=== PATIENT | female | born 1950 | race Hispanic/Latino ===

== ENCOUNTER → 2019-09-29 | Outpatient (CLI) | payer OTHER | END | disposition home or self-care (01) | LOC: RAH 13:48 | PROVIDERS: ATTEND Family Medicine | DX: Z12.31 Encounter for screening mammogram for malignant neoplasm of breast (principal) | CPT/HCPCS: 77067 ==

== ENCOUNTER 2020-05-25 09:42 | Inpatient (IN) | payer OTHER ==
[~2020-05-25] VITALS: Ht 149.9 cm; Wt 59.5 kg
[2020-05-25 10:08] LABS: BASOPHILS % (AUTO) 0.9 % (0.0-5.0); EOSINOPHILS % (AUTO) 2.4 % (0.0-8.0); HEMATOCRIT 37.2 % (36-48); LYMPHOCYTES % (AUTO) 29.6 % (21.0-51.0); MEAN CORPUSCULAR HEMOGLOBIN 28.8 pg (27.0-33.0); MEAN CORPUSCULAR HGB CONC 32.5 g/dL (32.0-36.0); MEAN CORPUSCULAR VOLUME 88.6 fL (79-99); MONOCYTES % (AUTO) 5.6 % (3.0-13.0); NEUTROPHILS % (AUTO) 61.2 % (40.0-77.0); PLATELET COUNT (AUTO) 283 K/uL (130-400); RED CELL DISTRIBUTION WIDTH 13.5 % (11.0-15.5)
[2020-05-25 10:17] LABS: INR 1.02 (0.85-1.15); PROTHROMBIN TIME 11.1 SEC (9.6-11.6)
[2020-05-25 10:19] LABS: PARTIAL THROMBOPLASTIN TIME 27.1 SEC (26.3-35.5)
[2020-05-25 10:36] LABS: CREATININE 1.2 mg/dL (0.5-1.5); POTASSIUM 3.8 mmol/L (3.5-5.1)
[2020-05-25 10:49] LABS: BILIRUBIN,TOTAL 0.5 mg/dL (0.2-1.0); TOTAL PROTEIN, SERUM 8.3 g/dL (6.0-8.3)
[2020-05-25 11:10] LABS: APPEARANCE,URINE Clear (CLEAR); BILIRUBIN,URINE Negative (NEGATIVE); COLOR,URINE Yellow (YELLOW); GLUCOSE, URINE (UA) Negative (NEGATIVE); KETONES,URINE Negative (NEGATIVE); LEUKOCYTE ESTERASE ,URINE Trace (NEGATIVE); NITRATE,URINE Negative (NEGATIVE); OCCULT BLOOD,URINE Negative (NEGATIVE); PROTEIN,URINE Negative (NEGATIVE); UROBILINOGEN,URINE 0.2 mg/dL (0.2-1.0)
[2020-05-25 11:49] LABS: BACTERIA,URINE Few /HPF (None Seen); RBC,URINE 0-1 /HPF (0-1); SQUAMOUS EPITHELIAL CELL,UR Few /HPF (0-2); WBC,URINE 0-1 /HPF (0-1)
[2020-05-25] MEDS ORDERED: ONDANSETRON 4MG INJ IVP PRN (12:45)
[2020-05-25] MEDS ORDERED: KCL 20 MEQ ERTAB PO PRN (12:45)
[2020-05-25] MEDS ORDERED: POTASSIUM CHLORIDE 20MEQ/100ML 100 ML IV PRN ×2 (12:45)
[2020-05-25] MEDS ORDERED: DEXTROSE 50%-WATER 50 ML DISP.SYRIN IV PRN (12:45)
[2020-05-25] MEDS ORDERED: MAGNESIUM 2GM PREMIX 50ML 50 ML IV PRN (12:45)
[2020-05-25] MEDS: ENOXAPARIN SODIUM 40 MG/0.4 ML SYRINGE SQ SCH (12:45)
[2020-05-25] MEDS ORDERED: ACETAMINOPHEN 325 MG TAB PO PRN (12:45)
[2020-05-25] MEDS ORDERED: LIDOCAINE HCL-MPF 1% 2ML VIAL IV PRN ×2 (12:45)
[2020-05-25] MEDS ORDERED: POTASSIUM CHLORIDE 10% ELIXIR 20 MEQ/15 ML UDCUP PO PRN (12:45)
[2020-05-25] MEDS ORDERED: LABETALOL 20MG VIAL IV PRN (12:45)
[2020-05-25] MEDS: 0.9%NACL 1000ML 1,000 ML IV SCH ×2 (12:45→23:28)
[2020-05-25] MEDS ORDERED: GLUCAGON 1MG KIT 1 MG ML IM PRN (12:45)
[2020-05-25] MEDS: ASPIRIN 81 MG EC TAB PO SCH (12:45)
[2020-05-25] MEDS ORDERED: 0.9%NACL 1000ML 1,000 ML IV ONE (13:16)
[2020-05-25] MEDS ORDERED: ENOXAPARIN SODIUM 40 MG/0.4 ML SYRINGE SQ ONE (13:18)
[2020-05-25] MEDS ORDERED: ASPIRIN 81MG CHEW TAB ONE (13:18)
[2020-05-25] MEDS ORDERED: IOHEXOL-350 75 ML VIAL IV ONE (13:18)
[2020-05-25 18:19] VITALS: BP 142/75
[2020-05-25 19:06] VITALS: BP 155/80
[2020-05-25] MEDS: ATORVASTATIN 40 MG TABLET PO SCH (20:41)
[2020-05-25] MEDS ORDERED: LISI40TA9 PO (22:42)
[2020-05-25] MEDS ORDERED: HYDR25TA PO (22:42)
[2020-05-25] MEDS ORDERED: ASPI-1005 PO (22:42)
[2020-05-25] MEDS ORDERED: METF-446 PO (22:42)
[2020-05-25 23:54] VITALS: BP 134/61
[2020-05-26 03:00] VITALS: BP 130/57
[2020-05-26 05:41] LABS: HEMOGLOBIN A1C 6.4 % (4.0-6.0)
[2020-05-26 05:51] LABS: THYROID STIMULATING HORMONE 3.13 uIU/mL (0.36-3.74)
[2020-05-26 06:16] LABS: MAGNESIUM 1.7 mg/dL (1.80-2.40)
[2020-05-26 08:20] VITALS: BP 139/53
[2020-05-26] MEDS: PANTOPRAZOLE 40 MG/VIAL IVP SCH (09:11)
[2020-05-26] MEDS: ASPIRIN 81 MG EC TAB PO SCH (09:11)
[2020-05-26] MEDS: ENOXAPARIN SODIUM 40 MG/0.4 ML SYRINGE SQ SCH (09:12)
[2020-05-26 12:00] VITALS: BP 130/34
[2020-05-26 17:24] VITALS: BP 174/69
[2020-05-26 19:26] VITALS: BP 159/80
[2020-05-26] MEDS: ATORVASTATIN 40 MG TABLET PO SCH (21:58)
[2020-05-26] MEDS: 0.9%NACL 1000ML 1,000 ML IV SCH (22:03)
[2020-05-26 23:08] VITALS: BP 147/75
[2020-05-27 03:00] VITALS: BP 151/80
[2020-05-27 05:48] LABS: HEMATOCRIT 31.9 % (36-48); MEAN CORPUSCULAR HEMOGLOBIN 28.8 pg (27.0-33.0); MEAN CORPUSCULAR HGB CONC 32.3 g/dL (32.0-36.0); MEAN CORPUSCULAR VOLUME 89.1 fL (79-99); RED BLOOD CELL COUNT(AUTO) 3.58 MIL/uL (4.00-5.50); RED CELL DISTRIBUTION WIDTH 13.5 % (11.0-15.5); WHITE BLOOD COUNT (AUTO) 6.3 K/uL (4.8-10.8)
[2020-05-27 06:07] LABS: MAGNESIUM 1.8 mg/dL (1.80-2.40); POTASSIUM 4.3 mmol/L (3.5-5.1)
[2020-05-27 08:28] VITALS: BP 129/69
[2020-05-27] MEDS: ASPIRIN 81 MG EC TAB PO SCH (11:02)
[2020-05-27] MEDS: 0.9%NACL 1000ML 1,000 ML IV SCH ×2 (11:02→15:05)
[2020-05-27] MEDS: HYDROCHLOROTHIAZIDE 25 MG TABLET PO SCH (11:02)
[2020-05-27] MEDS: PANTOPRAZOLE 40 MG/VIAL IVP SCH (11:02)
[2020-05-27] MEDS: LISINOPRIL 40 MG TABLET PO SCH (11:03)
[2020-05-27] MEDS: ENOXAPARIN SODIUM 40 MG/0.4 ML SYRINGE SQ SCH (11:03)
[2020-05-27 12:00] VITALS: BP 149/44
[2020-05-27 18:13] VITALS: BP 179/69
[2020-05-27 19:19] VITALS: BP 169/76
[2020-05-27] MEDS: ATORVASTATIN 40 MG TABLET PO SCH (21:16)
[2020-05-27] MEDS ORDERED: DEXTROSE 50%-WATER 50 ML DISP.SYRIN IV PRN (22:15)
[2020-05-27] MEDS ORDERED: GLUCAGON 1MG KIT 1 MG ML IM PRN (22:15)
[2020-05-27 23:50] VITALS: BP 165/71
[2020-05-28 00:45] VITALS: BP 158/83
[2020-05-28 04:37] LABS: RED CELL DISTRIBUTION WIDTH 13.2 % (11.0-15.5)
[2020-05-28 04:51] LABS: CREATININE 0.8 mg/dL (0.5-1.5); POTASSIUM 3.1 mmol/L (3.5-5.1)
[2020-05-28 04:55] VITALS: BP 141/74
[2020-05-28 04:56] LABS: HEMATOCRIT 30.2 % (36-48); MEAN CORPUSCULAR HEMOGLOBIN 28.9 pg (27.0-33.0); MEAN CORPUSCULAR HGB CONC 32.8 g/dL (32.0-36.0); MEAN CORPUSCULAR VOLUME 88.3 fL (79-99); RED BLOOD CELL COUNT(AUTO) 3.42 MIL/uL (4.00-5.50); WHITE BLOOD COUNT (AUTO) 9.5 K/uL (4.8-10.8)
[2020-05-28] MEDS: INSULIN HUMULIN R 100 UNIT/ML 3ML SQ SCH ×3 (07:30→16:02)
[2020-05-28] MEDS: LISINOPRIL 40 MG TABLET PO SCH (08:34)
[2020-05-28] MEDS: 0.9%NACL 1000ML 1,000 ML IV SCH (08:34)
[2020-05-28] MEDS: ASPIRIN 81 MG EC TAB PO SCH (08:34)
[2020-05-28] MEDS: HYDROCHLOROTHIAZIDE 25 MG TABLET PO SCH (08:34)
[2020-05-28] MEDS: ENOXAPARIN SODIUM 40 MG/0.4 ML SYRINGE SQ SCH (08:34)
[2020-05-28 08:35] VITALS: BP 140/68
[2020-05-28] MEDS: PANTOPRAZOLE 40 MG/VIAL IVP SCH (08:53)
[2020-05-28 11:53] VITALS: BP 160/87
[2020-05-28] MEDS ORDERED: ATOR40TA69 PO (12:30)
[2020-05-28] MEDS ORDERED: ASPI-1026 PO (12:30)
[2020-05-28 16:03] VITALS: BP 157/83
== END 2020-05-28 16:21 | disposition home or self-care (01) | DRG 64 ==
LOC: EDH 09:42 → EDHIP 12:32 → 4BH 18:00 → 2AH 05-27 22:30
PROVIDERS: ADMIT Internal Medicine Critical Care Medicine; ATTEND Internal Medicine Critical Care Medicine
DX: I63.511 Cerebral infarction due to unspecified occlusion or stenosis of right middle cerebral artery (principal); U07.1 COVID-19; E11.9 Type 2 diabetes mellitus without complications; I10 Essential (primary) hypertension; R29.810 Facial weakness; R20.2 Paresthesia of skin; R47.1 Dysarthria and anarthria; R27.9 Unspecified lack of coordination; Z90.710 Acquired absence of both cervix and uterus
CPT/HCPCS: 36415; 70450; 70496; 70498; 70551; 71045; 80048; 80053; 80061; 81001; 82550; 82948; 83036; 83735; 84443; 84484; 85025; 85027; 85378; 85610; 85730; 87426; 92522; 92610; 93005; 93306; 93356; C9113; G0378; J1650; J7030; Q9967; U0003

== ENCOUNTER → 2020-10-26 | Outpatient (CLI) | payer OTHER ==
[~2020-10-26] MED LIST: ASPI-1005 PO; ASPI-1026 PO; ATOR40TA69 PO; HYDR25TA PO; LISI40TA9 PO; METF-446 PO
== END | disposition home or self-care (01) ==
LOC: RAH 10:44
PROVIDERS: ATTEND Family Medicine
DX: Z12.31 Encounter for screening mammogram for malignant neoplasm of breast (principal)
CPT/HCPCS: 77067

== ENCOUNTER → 2022-01-21 | Outpatient (CLI) | payer OTHER | END | disposition home or self-care (01) | LOC: RAH 09:21 | PROVIDERS: ATTEND Family Medicine | DX: S09.90XA Unspecified injury of head, initial encounter (principal); X58.XXXA Exposure to other specified factors, initial encounter; Y93.89 Activity, other specified; Y92.89 Other specified places as the place of occurrence of the external cause; Y99.8 Other external cause status | CPT/HCPCS: 70450 ==

== ENCOUNTER → 2022-02-05 | Outpatient (CLI) | payer OTHER | END | disposition home or self-care (01) | LOC: RAH 08:56 | PROVIDERS: ATTEND Family Medicine | DX: Z12.31 Encounter for screening mammogram for malignant neoplasm of breast (principal) | CPT/HCPCS: 77067 ==

== ENCOUNTER → 2023-02-03 | Outpatient (CLI) | payer OTHER | END | disposition home or self-care (01) | LOC: RAH 09:35 | PROVIDERS: ATTEND Family Medicine | DX: R92.2 Inconclusive mammogram (principal); N64.9 Disorder of breast, unspecified | CPT/HCPCS: 76641; 77066 ==

== ENCOUNTER → 2024-05-17 | Outpatient (CLI) | payer OTHER ==
--- NOTE | 2024-05-18 09:49 | HMCIMG ---
PROCEDURE: MAMMO DX BILATERAL, US BREAST BILATERAL HISTORY: Breast disorder COMPARISON: 05/17/2024 TECHNIQUE: Bilateral digital diagnostic mammogram with CAD was performed. No additional views were obtained. Bilateral breast ultrasound study was performed. FINDINGS: Bilateral dystrophic calcifications are seen. There are small round nodular densities in the axillary tails bilaterally suggestive intramammary lymph nodes unchanged. The breasts are heterogeneously dense, which may obscure small masses. There is no evidence of a dominant mass, or suspicious microcalcification. There is no evidence of nipple retraction or skin thickening. Bilateral breast ultrasound study shows intramammary lymph node in the 11:00 of right breast measuring 4 x 2 mm. There is right axillary lymph node measuring 7 x 5 x 5. No cystic mass is seen of left breast. IMPRESSION: 1. Stable mammogram. Intramammary lymph node at 11:00 of right breast. BI-RADS: CATEGORY 2: BENIGN FINDINGS Recommend monthly self breast exam as well as annual clinical examination. A negative x-ray should not delay biopsy if a dominant or clinically suspicious mass is present, since 8-10% of cancers are not identified by mammography. Dense breasts particularly, may obscure an underlying neoplasm. Some of these may be detected clinically and therefore, clinical examination is an essential part of breast evaluation.
== END | disposition home or self-care (01) ==
LOC: RAH 13:49
PROVIDERS: ATTEND Family Medicine
DX: R92.333 Mammographic heterogeneous density, bilateral breasts (principal); R92.331 Mammographic heterogeneous density, right breast; R59.0 Localized enlarged lymph nodes
CPT/HCPCS: 77066